=== PATIENT | male | born 1955 | race Caucasian/White ===

== ENCOUNTER 2016-06-11 07:00 | Inpatient (IN) | payer OTHER ==
[~2016-06-11] VITALS: Ht 180.3 cm; Wt 81.0 kg
[2016-06-11] MEDS ORDERED: ONDANSETRON (ODT) 4 MG TAB ODT STA (07:32)
--- NOTE | 2016-06-11 07:40 | ERD ---
ER Documentation Chief Complaint Date/Time DATE: 06/11/16 TIME: 07:37 Chief Complaint HEADACHE X 5 DAYS HPI This is a very pleasant 61-year-old male. 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 Patient has prior history of cardiac surgery. The patient describes a headache for approximately 2-3 days. He describes it as left-sided, occipital, located at the base of the neck at the insertion point of the strap muscles of the neck. The pain is worse with movement and worse to touch. He states that he took an unknown named pain medication without relief. He denies any vision changes. He has had 1-2 episodes of nonbloody nonbilious emesis but no vertigo. He denies any chest pain or back pain. No vision changes, no jaw claudication. ROS All systems reviewed and are negative except as per history of present illness. PMhx/Soc History of Surgery: Yes (heart surgery ) Anesthesia Reaction: No Hx Neurological Disorder: No Hx Respiratory Disorders: No Hx Cardiac Disorders: Yes (high cholesterol ) Hx Psychiatric Problems: No Hx Miscellaneous Medical Probl: No Hx Alcohol Use: No Hx Substance Use: No Hx Tobacco Use: No Smoking Status: Never smoker FmHx Family History: No diabetes Physical Exam Vitals Vital Signs Date Time Temp Pulse Resp B/P Pulse Ox O2 Delivery O2 Flow Rate FiO2 06/11/16 07:15 98.0 74 18 136/83 99 Physical Exam General: Well developed, well nourished, no acute distress Head: Normocephalic, atraumatic. Eyes: Pupils equally reactive, EOM intact ENT: Moist mucous membranes Neck: Supple, no lymphadenopathy, focal tenderness along the base of the calvarium at the insertion point of the strap muscles of the neck that is reproducible, however full active and passive range of motion of the neck Respiratory: Lungs clear bilaterally, no distress Cardiovascular: RRR, no murmurs, rubs, or gallops Abdominal: Soft, non-tender, non-distended, no peritoneal signs : Deferred MSK: No edema, no unilateral swelling, 5/5 strength Neurologic: Alert and oriented, moving all extremities, normal speech, no focal weakness, no cerebellar signs, no meningismus Skin: No rash Psych: Normal mood Results 24 hrs Current Medications Medications (Trade) Dose Ordered Sig/Brayan Route PRN Reason Start Time Stop Time Status Last Admin Dose Admin Acetaminophen/ Hydrocodone Bitart ([place] (10/325)) 1 tab ONCE ONCE PO 06/11/16 08:00 06/11/16 08:01 DC 06/11/16 07:38 Diazepam (Valium) 5 mg ONCE ONCE PO 06/11/16 08:00 06/11/16 08:01 DC 06/11/16 07:38 Ondansetron HCl 4 mg 4 mg ONCE STAT ODT 06/11/16 07:32 06/11/16 07:34 DC 06/11/16 07:38 Sodium Chloride (NS) 500 ml @ 500 mls/hr Q1H STAT IV 06/11/16 08:52 06/11/16 09:51 DC 06/11/16 09:36 Procedures/MDM EKG, MONITORS, & DIAGNOSTIC IMAGING: CT brain: IMPRESSION: Low attenuation focus involving the inferolateral aspect of the left cerebellar hemisphere measuring 2.3 x 3.7 x 2.9 cm has a nonspecific appearance and may represent subacute ischemic changes or vasogenic edema from underlying etiologies such as cerebritis or metastasis. MRI of the brain with and without contrast is recommended for further evaluation. Results were discussed with Dr. Carrion by telephone at 0849 hours on 06/11/[address] Karson Herrera RPTAT: AADD MRI w and wo: [] MEDICAL DECISION MAKING: The patient presents with occipital headache and neck pain. His presentation is very consistent with likely musculoskeletal etiology given focal tenderness, reproducible symptoms with movement. He has no midline tenderness of the cervical spine. The patient does not meet high-risk criteria and based on NEXUS cervical spine criteria there is no indication for cervical spine imaging at this time. The patient has no vertigo and no sudden onset of symptoms. The presentation is not consistent with acute dissection. Blood pressure is normal. The patient's headache seems to be related to this insertion point. I have a low clinical concern for acute intracranial process however given the patient's age CT imaging of the brain would be reasonable. Patient has no evidence of giant cell arteritis The patient's headache is unlikely related to serious etiology. The patient does not exhibit any clinical signs or symptoms, and has no risk factors to suggest headache etiology such as subarachnoid hemorrhage, acute vertebral or carotid dissection, intracranial mass, epidural, subdural hematoma, dural venous sinus thrombosis, giant cell arteritis, or pseudotumor cerebri. The patient will benefit from nonsteroidal anti-inflammatories after negative CT brain. Pain medication, muscle relaxant medication and outpatient primary care referral. ER COURSE: Patient was given [place] and Valium and Zofran. He tolerated medications well. His symptoms are improving. However, the patient's CT brain is abnormal. The patient has no symptoms of fever, no symptoms or prior history of stroke. Unclear etiology as to the patient's CT findings. MRI imaging would be appropriate. The patient will have basic blood work and MRI with and without contrast. The patient may not require inpatient hospitalization depending on MRI results therefore the patient will continue to be observed in the emergency room. His pain is improved. [] I kept the patient and/or family informed of laboratory and diagnostic imaging results throughout the emergency room course. DISPOSITION PLAN: We discussed follow up with the patient's primary care doctor within 24 to 48 hours as needed. We also discussed return to the emergency room for worsening symptoms or worsening condition. Outpatient referral: [None required] Discharge Medications: [place], Valium, Naprosyn, Zofran We discussed the use of narcotics including avoidance of operating heavy machinery and driving as well as its addictive properties. Departure Diagnosis: Primary Impression: Headache, occipital Additional Impression: Neck pain on left side Condition: Stable CAMILLE CARRION MD Jun 11, 2016 07:40
[2016-06-11] MEDS ORDERED: DIAZEPAM 5 MG TAB PO ONE (08:00)
[2016-06-11] MEDS ORDERED: HYDROCODONE/APAP (10/325) TAB PO ONE (08:00)
--- NOTE | 2016-06-11 08:51 | RADRPT ---
PROCEDURE: CT Brain without contrast. CLINICAL INDICATION: Pain, headache TECHNIQUE: Routine CT scan of the brain was performed on a high resolution multi detector scanner without intravenous contrast. One or more of the following dose reduction techniques were used: Auto mated exposure control; Adjustment of the mA and/or kV according to patient size; Use of iterative r econstruction technique. CTDI = 41 mGy. DLP = 630 mGy-cm. COMPARISON: No prior relevant examinations are available for comparison. FINDINGS: Hemorrhage: No evidence of intracranial hemorrhage. Acute ischemic changes: No evidence of definite acute ischemic changes. Mass effect/Midline shift: Low attenuation focus involving the inferolateral aspect of the left cere bellar hemisphere measuring 2.3 x 3.7 x 2.9 cm has a nonspecific appearance and may represent subacu te ischemic changes or vasogenic edema from underlying etiologies such as cerebritis or metastasis. This produces minimal local mass effect without significant mass effect on the fourth ventricle or t onsillar descent. Parenchymal volume: Within normal limits for age. Ventricular system: Concordant with parenchymal volume. Chronic changes: Mild chronic-appearing microvascular ischemic changes of the supratentorial white m atter. Atherosclerotic calcifications of the cavernous portions of both internal carotid arteries ar e present. Extracranial soft tissues: Unremarkable. Calvarium: No fractures. Paranasal sinuses: Visualized paranasal sinuses are clear. Mastoid air cells: Visualized mastoid air cells are clear. IMPRESSION: Low attenuation focus involving the inferolateral aspect of the left cerebellar hemisphere measuring 2.3 x 3.7 x 2.9 cm has a nonspecific appearance and may represent subacute ischemic changes or vaso genic edema from underlying etiologies such as cerebritis or metastasis. MRI of the brain with and w ithout contrast is recommended for further evaluation. Results were discussed with Dr. Carrion by telephone at 0849 hours on 06/11/[address] Karson valdes RPTAT: AADD .Karson Herrera MD, MD Date Time Electronically viewed and signed by .Karson Herrera MD, MD on 06/11/2016 08:51 .B/
[2016-06-11] MEDS ORDERED: SOD CHLORIDE 0.9% 500 ML IV STA (08:52)
[2016-06-11 10:31] LABS: ADD SCAN DIFF NO
[2016-06-11 10:40] LABS: BASOPHILS % 0.2 % (0.0-2.0); EOSINOPHILS % 0.2 % (0.0-7.0); HEMATOCRIT 47.1 % (42.0-52.0); HEMOGLOBIN 15.9 g/dl (14.0-18.0); LYMPHOCYTES # 1.1 10^3/ul (0.8-2.9); LYMPHOCYTES % 8.7 % (15.0-51.0); MEAN CORPUSCULAR HEMOGLOBIN 27.7 pg (29.0-33.0); MEAN CORPUSCULAR HGB CONC 33.8 g/dl (32.0-37.0); MEAN CORPUSCULAR VOLUME 82.2 fl (82.0-101.0); MEAN PLATELET VOLUME 10.7 fl (7.4-10.4); MONOCYTE # 0.4 10^3/ul (0.3-0.9); MONOCYTES % 3.5 % (0.0-11.0); NEUTROPHIL # 10.7 10^3/ul (1.6-7.5); NEUTROPHILS % 87.1 % (39.0-77.0); PLATELET COUNT 283 10^3/UL (140-415); RED BLOOD COUNT 5.73 10^6/ul (4.70-6.10); RED CELL DISTRIBUTION WIDTH 14.4 % (11.5-14.5); WHITE BLOOD COUNT 12.3 10^3/ul (4.8-10.8)
[2016-06-11 10:48] LABS: POTASSIUM 5.7 mmol/L (3.5-5.1)
[2016-06-11 10:51] LABS: CREATININE 1.03 mg/dl (0.61-1.24)
[2016-06-11 10:52] LABS: CALCIUM 9.2 mg/dl (8.4-10.2)
[2016-06-11 10:54] LABS: INR 1.95; PARTIAL THROMBOPLASTIN TIME 34.1 Sec (25.0-35.0); PROTIME 22.4 Sec (12.2-14.2); PT RATIO 1.8
[2016-06-11] MEDS ORDERED: ATOR40TA68 PO (11:35)
[2016-06-11] MEDS ORDERED: WARF10TA PO ×2 (11:39→11:54)
[2016-06-11] MEDS ORDERED: ONDA4TAB14 PO (13:39)
[2016-06-11] MEDS ORDERED: HYDR-902 PO (13:39)
[2016-06-11] MEDS ORDERED: DIAZ-90 PO (13:39)
[2016-06-11] MEDS ORDERED: NAPR-260 PO (13:39)
[2016-06-11] MEDS ORDERED: LORAZEPAM 2 MG INJ IV ONE (15:30)
[2016-06-11] MEDS ORDERED: ASPIRIN 325 MG TAB PO STA (16:10)
--- NOTE | 2016-06-11 16:12 | RADRPT ---
PROCEDURE: MR Brain with and without contrast. CLINICAL INDICATION: Left inferior cerebellar lesion. TECHNIQUE: Multiplanar multisequence MRI of the brain was performed before and after the administra tion of 10 ml of Magnevist. COMPARISON: Noncontrast CT of the head from the same day. FINDINGS: There are few bilateral subcortical T2 hyperintensities suggesting chronic microvascular ischemic c hanges. Hypoattenuation within the left inferior cerebellar hemisphere corresponds with a 3.7 cm area of res tricted diffusion compatible acute / recent infarction. There is associated edema without significan t effacement of the fourth ventricle or hydrocephalus. There is minimal associated enhancement in th e inferior medial aspect of the left cerebellar hemisphere related to infarction. Otherwise there i s no intracranial hemorrhage. Otherwise the ventricles and sulci are within normal limits. There is no intracranial hemorrhage or extra-axial fluid collection. There is no midline shift. The brainstem is within normal limits. The normal intracranial, intravascular flow voids are preserved. The visualized paranasal sinuses are well aerated. The orbits are grossly unremarkable. There is no destructive osseous lesion. IMPRESSION: 1. Acute / recent infarction within the left inferior cerebellar hemisphere within the left posteri or inferior cerebellar artery distribution corresponding with hypoattenuation on recent head CT. The re is no effacement fourth ventricle or hydrocephalus. Serial noncontrast CT of the head imaging ma y be performed if clinically considered for developing hydrocephalus. 2. Minimal chronic microvascular ischemic changes. 3. No intracranial hemorrhage. Further findings as detailed above. These findings were discussed with Dr. Pola Jimenez at 04:09 p.m. on June 11, 2016. RPTAT: PP .Conor Lawler MD, Date Time Electronically viewed and signed by .Conor Lawler MD, on 06/11/2016 16:12 .F/
[2016-06-11] MEDS ORDERED: ONDANSETRON 4 MG INJ IV PRN ×2 (16:30→18:00)
[2016-06-11] MEDS ORDERED: ACETAMINOPHEN 325 MG TAB PO PRN ×2 (16:30→18:00)
[2016-06-11] MEDS ORDERED: BISACODYL 10 MG SUPP PR PRN (18:00)
[2016-06-11] MEDS ORDERED: morphine 2 MG INJ IV PRN (18:00)
[2016-06-11] MEDS ORDERED: NACL 0.9% 3 ML SYG IV SCH (18:00)
[2016-06-11] MEDS ORDERED: HYDROCODONE/APAP (5/325) TAB PO PRN (18:00)
[2016-06-11] MEDS ORDERED: WARFARIN 10 MG TAB PO SCH (18:30)
[2016-06-11] MEDS ORDERED: DIAZEPAM 5 MG TAB PO PRN (18:30)
[2016-06-11] MEDS: ENOXAPARIN 80 MG/0.8 ML SYG SC SCH (18:39)
[2016-06-11] MEDS ORDERED: IOHEXOL 350MG/ML 50 ML BTL ONE (19:58)
[2016-06-11] MEDS ORDERED: SOD CHLORIDE 0.9% 100 ML ONE (19:58)
[2016-06-11] MEDS ORDERED: IOHEXOL 100 ML ONE (19:58)
[2016-06-11] MEDS ORDERED: HYDROmorphONE 1 MG/ML SYG IV STA (20:50)
[2016-06-11] MEDS: ATORVASTATIN 40 MG TAB PO SCH (21:00)
[2016-06-11] MEDS: FAMOTIDINE 20 MG TAB PO SCH (21:00)
--- NOTE | 2016-06-11 21:37 | RADRPT ---
PROCEDURE: CT Angiogram Head and Neck with IV Contrast CLINICAL INDICATION: Left cerebellar stroke.. TECHNIQUE: Serial axial computed tomographic images of the head and neck were obtained at the [facility] nistration of 100 cc Omnipaque 350 IV contrast material. 3D, sagittal and coronal reconstruction im ages were created. 3D/MIP post-processing angiographic reconstruction images were also produced. Ex am CTDlvol = 36 mGy and DLP = 739 mGy-cm. One of the following 3 dose reduction techniques were use d: Automated exposure control; adjustment of the mA and/or kV according to patient size; or use of i terative reconstruction technique. COMPARISON: CT and MRI brain 06/11/2016 FINDINGS: CT Angio Neck: There are mild atherosclerotic calcifications of the aortic arch. The aortic arch is unremarkable. The common carotid arteries are normal in appearance. There is minimal noncalcified plaque the left carotid bulb without hemodynamically significant stenosis. Right carotid bifurcatio n is normal in appearance.. There is no evidence for carotid dissection. The vertebral arteries ar e pain bilaterally. There is a dominant right vertebral artery. There are no atherosclerotic calci fications or stenosis. There is no evidence for vertebral dissection.. Regional bones unremarkable . CT Angio Head: All major intracranial arteries are identified. The anterior circulation including the intracranial internal carotid arteries, middle and anterior cerebral arteries are normal in appe arance. The bilateral distal vertebral arteries, basilar artery and posterior cerebral arteries are normal in appearance. No occlusion or stenosis is identified. No filling defect is identified. No aneurysm or vascular malformation is identified. No abnormal brain parenchymal enhancement is i dentified. IMPRESSION: 1. Minimal noncalcified plaque at the left carotid bulb without hemodynamically significant stenosi s. 2. Minimal atherosclerotic calcifications of the aortic arch. No other atherosclerotic disease robert ntified. 3. Dominant right vertebral artery. Pain left vertebral artery without stenosis or evidence for di ssection. 4. Otherwise negative examination. NASCET CAROTID STENOSIS CRITERIA (distal normal appearing ICA as denominator for measurement): 0%-no ne, 1-49%-mild, 50-70%-moderate, 70-89%-severe, 90-99%-critical. RPTAT: HMVK .Freddy Espinoza MD, MD Date Time Electronically viewed and signed by .Freddy Espinoza MD, on 06/11/2016 21:36 .K/
[2016-06-12] VITALS (11 sets, daily range): BP systolic 73–130; BP diastolic 25–88; PULSE 59–76; RESP 15–20; TEMP 98.3
[2016-06-12] MEDS: HYDROmorphONE 1 MG/ML SYG IV PRN ×2 (04:37→10:31)
[2016-06-12 05:47] LABS: ALBUMIN 3.9 g/dl (3.3-4.9)
[2016-06-12 05:48] LABS: POTASSIUM 4.4 mmol/L (3.5-5.1)
[2016-06-12 05:50] LABS: ALBUMIN/GLOBULIN RATIO 1.08; BILIRUBIN,INDIRECT 0.8 mg/dl (0-1.1); BILIRUBIN,TOTAL 0.8 mg/dl (0.2-1.3); CREATININE 0.99 mg/dl (0.61-1.24); TOTAL PROTEIN 7.5 g/dl (6.1-8.1)
[2016-06-12 05:51] LABS: CALCIUM 8.9 mg/dl (8.4-10.2); CHOL/HDL RATIO 2.8 RATIO
[2016-06-12 05:54] LABS: INR 2.29; PROTIME 25.5 Sec (12.2-14.2)
[2016-06-12 05:55] LABS: PARTIAL THROMBOPLASTIN TIME 44.6 Sec (25.0-35.0)
--- NOTE | 2016-06-12 06:16 | HP ---
DATE OF ADMISSION: 06/11/2016 ADMITTING PHYSICIAN: ELI MCGRATH MD CONSULTING PHYSICIAN: PHILIP TOLENTINO MD, Neurology CHIEF COMPLAINT ON ADMISSION: Posterior headache. HISTORY OF PRESENTING ILLNESS: This is a 61-year-old male status post mechanical valve a year and a half ago, hyperlipidemia, very active in his usual state of health until approximately 2 to 3 days ago when he started complaining of a posterior headache. According to the patient, it kept worsenin g up to a 10 out of 10 by this morning. According to the family, the patient was noted to have abno rmal gait and unsteadiness. The patient himself does report nausea and episodes of vomiting. He re ports also dizziness. All the symptoms were worse this morning. Therefore, he came to the emergenc y department. He was treated symptomatically and did feel a little better. He had a CAT scan of th e brain which came back abnormal with possible acute infarct in the PICA territory. Patient had his labs drawn. He is found to have INR of 1.9. His goal INR should be 2.5 to 3.5. He had a subsequen t MRI with and without contrast which did confirm an acute or recent acute infarction in the PICA te rritory. Because this is a posterior infarction, there is high risk for worsening vasogenic edema a nd brain herniation. Therefore the patient is being admitted to the intensive care unit on q.1 hour neuro checks and he needs serial CAT scan to evaluate for possible worsening edema or developing hyd rocephalus. Given his history of mechanical valve, the patient has been on Coumadin as an outpatien t and the family did confirm that his goal INR should be 2.5 to 3.5. However, he has not had his IN R checked over the past 3 months and today it is 1.9. There is a high suspicion for this acute cere brovascular accident being on embolic CVA at this time; therefore, he was given a dose of Lovenox in the emergency department already, 1 mg/kg. He is being admitted to the intensive care unit. CT an giogram of the head and neck are pending. The patient currently is complaining of headache, but no nausea. His vision seems to be stable. ALLERGIES: NO KNOWN ALLERGIES. PAST MEDICAL HISTORY: Hyperlipidemia. PAST SURGICAL HISTORY: Status post mechanical valve placement. SOCIAL HISTORY: The patient lives with family. He denies any alcohol use. He quit smoking a long time ago. He only smoked occasionally for 1 year and his also quit smoking. REVIEW OF SYSTEMS: As per HPI. OUTPATIENT MEDICATIONS: 1. Coumadin 10 mg p.o. every Tuesday, Tuesday, 2. Coumadin 5 mg p.o. every Tuesday, Tuesday and Tuesday. 3. Atorvastatin 40 mg p.o. at bedtime. 4. Valium 5 mg p.o. q. 8 hours p.r.n. muscle spasms. 5. [place] 10/325 one tab p.o. q.6h. p.r.n. pain. 6. Naprosyn 500 mg p.o. b.i.d. 7. Zofran ODT 4 mg p.o. at bedtime p.r.n. nausea, vomiting. PHYSICAL EXAMINATION: VITAL SIGNS: Temperature is 98.3, heart rate of 76, sinus rhythm, respiratory rate 20, blood pressu re 118/86. The patient is satting 98% on room air. GENERAL: He is alert and oriented x4. He is in no acute distress currently. His pain is around 5 to 8/10, but he is very comfortable after he was given Ativan for his MRI. HEENT: Pupils are equally round and reactive to light. Extraocular muscles are intact. Anicteric sclerae. NECK: No JVD, no thyromegaly. Cranial nerves II through XII are intact. The rest of his exam is fa irly limited. LUNGS: Clear to auscultation bilaterally. ABDOMEN: Soft, nontender, nondistended. Bowel sounds are present. HEART: Regular rate and rhythm. There is a mechanical valve click that can be heard during exam. EXTREMITIES: No edema, clubbing or cyanosis. NEUROLOGIC: The motor strength is 5/5 throughout all 4 extremities. Gait is not tested at this poi nt. Vision seems to be fairly clear except the patient complains of seeing flutters on peripheral vi ester exam. LABORATORY DATA: White blood cell count 12.3, hemoglobin 15.9, hematocrit 47.1, platelet count of 2 83. Chemistry with a sodium of 138, potassium 5.7, chloride 102, bicarbonate 27, BUN 17, creatinine 1.03, glucose of 118, calcium of 9.2. INR 1.95, PT 34.1, PTT 22.4. RADIOLOGICAL DATA: CAT scan of the brain early this morning showed low attenuation focus involving the inferolateral aspect of the left cerebellar hemisphere measuring 2.3 x 3.7 x 2.9 cm. It has a n onspecific appearance and may represent subacute ischemic changes of vasogenic edema from underlying etiology such as cerebritis or metastasis. MRI of the brain with and without contrast is recommend ed for further evaluation. MRI of the brain with and without contrast did show acute/recent infarction within the left inferior cerebellar hemisphere within the left posterior inferior cerebellar artery distribution correspondi ng with hypoattenuation on recent head CT. There is no assessment of the fourth ventricle or hydroc ephalus. Serial noncontrast CT of the head imaging may be performed if clinically consider for deve loping hydrocephalus. Minimal chronic microvascular ischemic changes. ASSESSMENT AND PLAN: This is a 61-year-old male with: 1. 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 I have discussed the res ults of the MRI with radiology because of the location of infarct, and the fact that it is most like ly embolic. There is concern for possible worsening vasogenic edema and ____herniation, therefore, the patient is admitted to the intensive care unit currently and he is going to have a q.1h. neuro check, repeat CAT scan in the morning, CT angiogram of the head and neck that are pending. A 2D ec hocardiogram is ordered as again this is likely an embolic process as the patient has subtherapeutic INR with mechanical valve in place. His Coumadin is resumed. INR will be rechecked in the morning. For now, we will cover him with Lovenox 1 mg/kg. Pending the results of the CT in the morning, we will continue anticoagulation. Blood pressure is stable. The patient is currently comfortable. S ymptomatic management of the headache with pain medications. 2. Hyperlipidemia. Check fasting lipid panel in a.m. but also hemoglobin A1c. Continue atorvastat in for now. 3. Prophylaxis. The patient already on Lovenox treatment. 4. Status post mechanical valve. I will obtain more information from the family as to which positio n this valve is. This is likely a mitral mechanical valve. I will get more information from famil y regarding this mechanical valve. They do have a card that can give more information. For now, I h ave confirmed that the goal INR should be 2.5 to 3.5. Therefore, Coumadin is restarted at 10 mg p.o . daily with daily INR to be checked and bridged with Lovenox in the meantime. 5. Prophylaxis. The patient is already on full anticoagulation and he is to receive Pepcid for GI prophylaxis. 6. Disposition. The patient is being admitted to the intensive care unit primarily for q.1h. neur o checks; therefore, hopefully, if he remains stable and repeat CAT scan is stable, he may be able t o be transferred to the floor. Neurology has been consulted. CT angiogram of the head and neck are pending. Dictated By: ELI COLON/DONALDO Conf#: [id number] DID#: [id number]
--- NOTE | 2016-06-12 06:18 | SP ---
DATE OF PROCEDURE: REFERRING PHYSICIAN: Dr. Griffiths Thank you for asking me to see the patient with you. HISTORY OF PRESENT ILLNESS: The patient is a 61-year-old male with a past medical history of dyslip idemia. The patient is on anticoagulation with his primary doctor, Coumadin, in which the patient was drowsy in the last 3 days, with lack of balance himself. 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 He does not want to go to the hospital. He came by his family. Today we got a call about him for more evaluation and treatment. CURRENT MEDICATIONS: Include: 1. Lipitor 20 mg once a day. 2. 20 mg once a day. 3. Lovenox 30 mg q.12h. subcutaneous. 4. Valium 5 mg every 8 hours as needed. 5. Coumadin 10 mg once a day. 6. Zofran 4 mg once a day. 7. Atenolol 650 mg once a day. 8. Colace 100 mg twice a day as needed. 9. Milk of Magnesia as needed. 10. Bisacodyl as needed. SOCIAL HISTORY: The patient does not smoke, does not drink, does not take any street drugs. 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 PHYSICAL EXAMINATION: GENERAL: On exam today, the patient is alert, awake, oriented to time, place, and person. Normal sp eech and normal language. CRANIAL NERVES: Cranial nerve II: Pupils are equal on both sides, reactive to light. Cranial nerv es III, IV, and : Extraocular muscles intact, . Cranial nerve V: Decreased sensation to the left side of his face, with numbness. Cranial nerve VII: Symmetrical face. Cranial nerve VIII: D ecreased hearing bilaterally. Cranial nerves IX and X: Elevates palate. Cranial nerve XI: Elevat es shoulders. 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 Sensation decreased on the right side of the body for light touch and temperature. COORDINATION: [id number] test intact. HEART: Regular rate and rhythm. LUNGS: Equal breath sounds. ABDOMEN: Soft, relaxed, nondistended. No tenderness. ASSESSMENT AND PLAN 1. The patient is a 61-year-old male with gross hemisensory deficits, with the possibility of under lying acute stroke. The patient is already on Coumadin. Will follow up the patient with an INR and keep the INR between the level of 2 to 3. Continue the patient on Lovenox subcutaneous from now un til we get a subtherapeutic level of the Coumadin. 2. Will follow up the patient with [facility] for more evaluation and treatment, with the possibility of u nderlying left PICA, posterior and inferior cerebellar artery stroke. 3. Keep the patient under aspiration precautions for now, follow up the patient with speech therapy for swallowing and keep the patient n.p.o. until we get the study done. 4. Gross hemianesthesia. I am going to ask for the patient Neurontin 300 mg 3 times a day. 5. Will follow up the patient with physical therapy and occupational therapy. 6. Keep the patient under deep venous thrombosis prophylaxis, as well as decubitus ulcer prophylaxi s. Again, thank you, Dr. Abraham, for asking me to see the patient with you. Dictated By: PHILIP GARCÍA/DONALDO Conf#: [id number] DID#: [id number]
--- NOTE | 2016-06-12 07:21 | PN ---
Date/Time of Note Date/Time of Note DATE: 06/12/16 TIME: 07:07 Assessment/Plan VTE Prophylaxis VTE Prophylaxis Intervention: LMWH, other (Coumadin) Assessment/Plan Assessment/Plan [facility] 1. 61-year-old man with a history of a mechanical valve 18 months ago and hyperlipidemia who developed occipital headache 3 days ago. Abnormal gait according to his family. Nausea and emesis now resolved. No dizziness. Bedside swallowing evaluation normal. MRI with and without contrast confirmed an acute or recent acute infarction in the PICA territory. * Discussed with Dr. Abraham this morning. Transfer to telemetry. * Neuro checks every 2 hours * INR this morning is 2.19. Target is 2.5, on Coumadin 10mg tonight and Lovenox * Pain control with Dilaudid 1mg q2h for now 2. Hyperlipidemia. * Lipid panel pending 3. Status post mechanical valve placement. * Family seeking additional information 4. Elevated potassium (5.7), now resolved on AM labs today. 5. CKD3 6. Famotidine for GI prophylaxis, Lovenox and Coumadin for DVT and new stroke prophylaxis 7. Disposition: Following with Dr. Griffiths, supportive family at home. Maxime Tolentino MD PhD [phone] Subjective 24 Hr Interval Summary Free Text/Dictation Complaining of mild occipital headache, 30 minutes after his last dose of Dilaudid (started by me at 4:15am). No nausea or dizziness now. Mildly hungry and thirsty. Exam/Review of Systems Vital Signs Vitals Vital Signs Date Time Temp Pulse Resp B/P Pulse Ox O2 Delivery O2 Flow Rate FiO2 06/12/16 06:43 57 18 130/79 100 Room Air 06/12/16 04:00 98.3 Exam GENERAL: No acute distress, breathing comfortably on room air. HEENT: Pupils are equally round and reactive to light. Extraocular muscles are intact. Anicteric sclerae. Upper plate in place. NECK: No JVD, no thyromegaly. The rest of his exam is fairly limited. LUNGS: Clear to auscultation bilaterally. ABDOMEN: Soft, nontender, non-distended. Bowel sounds are present. HEART: Regular rhythm, normal rate. There is a mechanical valve click that can be heard during exam. EXTREMITIES: No edema, clubbing or cyanosis. No arthritis. NEUROLOGIC: Intact mental status. Cranial nerves II through XII are intact. The motor exam is 5/5 bilaterally in all four extremities. Toes downgoing. Results Result Diagram: 06/11/16 1025 06/12/16 0515 Results 24 hrs Laboratory Tests Test 06/11/16 10:25 06/12/16 05:15 White Blood Count 12.3 H Red Blood Count 5.73 Hemoglobin 15.9 Hematocrit 47.1 Mean Corpuscular Volume 82.2 Mean Corpuscular Hemoglobin 27.7 L Mean Corpuscular Hemoglobin Concent 33.8 Red Cell Distribution Width 14.4 Platelet Count 283 Mean Platelet Volume 10.7 H Neutrophils % 87.1 H Lymphocytes % 8.7 L Monocytes % 3.5 Eosinophils % 0.2 Basophils % 0.2 Nucleated Red Blood Cells % 0.0 Neutrophils # 10.7 H Lymphocytes # 1.1 Monocytes # 0.4 Eosinophils # 0.0 Basophils # 0.0 Nucleated Red Blood Cells # 0.0 Prothrombin Time 22.4 H 25.5 H Prothrombin Time Ratio 1.8 2.0 INR International Normalized Ratio 1.95 2.29 Activated Partial Thromboplast Time 34.1 44.6 H Sodium Level 138 137 Potassium Level 5.7 H 4.4 Chloride Level 102 103 Carbon Dioxide Level 27 24 Anion Gap 15 14 Blood Urea Nitrogen 17 13 Creatinine 1.03 0.99 Glucose Level 118 112 Calcium Level 9.2 8.9 Hemoglobin A1c 5.7 Magnesium Level 2.0 Total Bilirubin 0.8 Direct Bilirubin 0.00 Indirect Bilirubin 0.8 Aspartate Amino Transf (AST/SGOT) 38 Alanine Aminotransferase (ALT/SGPT) 46 Alkaline Phosphatase 115 Total Protein 7.5 Albumin 3.9 Globulin 3.60 H Albumin/Globulin Ratio 1.08 Triglycerides Level 109 Cholesterol Level 110 LDL Cholesterol, Calculated 49 HDL Cholesterol 39 Cholesterol/HDL Ratio 2.8 Medications Medications Current Medications Ondansetron HCl (Zofran Inj) 4 mg Q6H PRN IV NAUSEA AND/OR VOMITING; Start at 18:00 Acetaminophen (Tylenol Tab) 650 mg Q6H PRN PO PAIN LEVEL 1-3 OR FEVER; Start at 18:00 Acetaminophen/ Hydrocodone Bitart ([place] (5/325)) 1 tab Q6H PRN PO PAIN LEVEL 4 -6; Start 06/11/16 at 18:00 Acetaminophen/ Hydrocodone Bitart ([place] (5/325)) 2 tab Q6H PRN PO PAIN LEVEL 7 -10; Start 06/11/16 at 18:00 Morphine Sulfate (morphine) 2 mg Q4H PRN IV PAIN LEVEL 7-10; Start 06/11/16 at 18:00 Docusate Sodium (Colace) 100 mg Q12H PRN PO CONSTIPATION; Start 06/11/16 at 18: 00 Magnesium Hydroxide (Milk Of Mag) 30 ml DAILY PRN PO CONSTIPATION; Start at 18:00 Bisacodyl (Dulcolax Supp) 10 mg DAILY PRN [place] CONSTIPATION; Start 06/11/16 at 18 :00 Famotidine (Pepcid) 20 mg Q12 PO Last administered on 06/11/16 21:00; Admin Dose 20 MG; Start 06/11/16 at 21:00 Enoxaparin Sodium (Lovenox) 80 mg ONCE SC Last administered on 06/11/16 18:39 ; Admin Dose 80 MG; Start 06/11/16 at 18:30 Atorvastatin Calcium (Lipitor) 40 mg QHS PO Last administered on 06/11/16 21: 00; Admin Dose 40 MG; Start 06/11/16 at 21:00 Diazepam (Valium) 5 mg Q8H PRN PO MUSCLE SPASMS; Start 06/11/16 at 18:30 Warfarin Sodium (Coumadin) 10 mg DAILY PO Last administered on 06/11/16 19:16 ; Admin Dose 10 MG; Start 06/11/16 at 18:30 Enoxaparin Sodium (Lovenox) 80 mg Q12 SC ; Start 06/12/16 at 09:00 Hydromorphone HCl (Dilaudid) 1 mg Q3H PRN IV PAIN LEVEL 7-10 Last administered on 06/12/16 04:37; Admin Dose 1 MG; Start 06/12/16 at 04:30 ИРИНА TOLENTINO M.D. Jun 12, 2016 07:19
[2016-06-12] MEDS ORDERED: ASPIRIN 81 MG TAB PO SCH (09:00)
[2016-06-12] MEDS: FAMOTIDINE 20 MG TAB PO SCH ×2 (09:58→20:26)
[2016-06-12] MEDS: ENOXAPARIN 100 MG/ML SYG SC SCH ×2 (09:58→20:29)
--- NOTE | 2016-06-12 13:01 | RADRPT ---
Echocardiogram Report ADDENDUM Patient Name: JOSE LEY Gender: Male Date: 1955 Study Date: 12-Jun-2016 Band Sewer: [facility] Location: [facility] Ref. Physician: MORA MCGRATH Quality: Adequate Procedures: Transthoracic echocardiogram with complete 2D, M-Mode, and doppler examination. Indications: Chest Pain. 2D/M Mode Doppler Measurement Value Normal Ranges Measurement Value Normal Ranges LVIDd 2D 3.8 3.5 - 5.6 cm LETY Vmax 2.0 cm2 LVIDs 2D 2.6 2.1 - 4.1 cm LETY VTI 2.0 cm2 LVPWd 2D 1.3 0.6 - 1.1 cm AV Mean Sandeep 1.5 m/sec IVSd 2D 1.5 0.6 - 1.1 cm AV Mean PG 10.0 mmHg AoR Diam 2D 2.0 2.0 - 3.7 cm AV Peak Sandeep 2.1 m/sec EDV 2D 62.1 cm3 AV Peak PG 17.5 mmHg ESV 2D 17.1 cm3 AV VTI 45.4 cm LVOT Diam 1.9 cm LVOT Mean Sandeep 0.9 m/sec LVOT Mean PG 3.7 mmHg LVOT Peak Sandeep 1.5 m/sec LVOT Peak PG 8.9 mmHg LVOT VTI 31.5 cm MV E Peak Sandeep 0.7 m/sec MV A Peak Sandeep 1.0 m/sec MV E/A 0.8 MV Decel Time 343 msec MV Decel Armstrong 2 MV E/A 0.8 TR Peak Sandeep 2.2 m/sec TR Peak PG 20.0 mmHg Findings Left Ventricle: Normal left ventricular systolic function. Normal left ventricular cavity size. Mild hypertrophy of the basal septum. Ejection fraction is visually estimated at 65 %. Tissue Doppler/Mitral Doppler indices are consistent with impaired relaxation (Stage I diastolic dysfunction). Resting left ventricular outflow tract velocity 1.49 m/sec. Resting left ventricular outflow tract gradient 8.9 mmHg. Right Ventricle: Normal right ventricular size. Normal right ventricular systolic function. Left Atrium: The left atrium is normal in size. Right Atrium: The right atrium is normal in size. Mitral Valve: Mild mitral leaflet calcification. Mild mitral annular calcification. Trace mitral regurgitation. Mild mitral stenosis. Mitral valve Max Velocity 1.19 m/sec. MaxPG 5.60 mmHg. MeanPG 1.70 mmHg. Mitral Valve Area by PHT2.50 cm2. Mitral Valve Area by Continuity2.50 cm2. Aortic Valve: Aortic Valve Mechanical Prosthesis. Aortic valve Max velocity 2.09 m/sec. Max PG 17.50 mmHg. Mean PG 10.00 mmHg. Aortic valve area 2.00 cm2. Tricuspid Valve: Estimated peak PA systolic pressure 23 mmHg. There is mild tricuspid regurgitation. Pulmonic Valve: There is trace pulmonic regurgitation. Pericardium: Normal pericardium with no significant pericardial effusion. Aorta: Normal aortic root. IVC: Normal size and normal respiratory collapse consistent with normal right atrial pressure. Conclusions 1.Normal left ventricular systolic function. Normal left ventricular cavity size. Mild hypertrophy of the basal septum. Ejection fraction is visually estimated at 65 %. Tissue Doppler/Mitral Doppler indices are consistent with impaired relaxation (Stage I diastolic dysfunction). Resting left ventricular outflow tract velocity 1.49 m/sec. Resting left ventricular outflow tract gradient 8.9 mmHg. 2.Mild mitral leaflet calcification. Mild mitral annular calcification. Trace mitral regurgitation. Mild mitral stenosis. Mitral valve Max Velocity 1.19 m/sec. MaxPG 5.60 mmHg. MeanPG 1.70 mmHg. Mitral Valve Area by PHT2.50 cm2. Mitral Valve Area by Continuity2.50 cm2. 3.Aortic Valve Mechanical Prosthesis. Aortic valve Max velocity 2.09 m/sec. Max PG 17.50 mmHg. Mean PG 10.00 mmHg. Aortic valve area 2.00 cm2. 4.Estimated peak PA systolic pressure 23 mmHg. There is mild tricuspid regurgitation. Electronically Signed By: Darrion Martinez 13-Jun-2016 08:29:52 -0700 [ADDENDUM] Patient Name: JOSE LEY Study Date: 12-Jun-2016 [id number]
--- NOTE | 2016-06-12 15:16 | CONS ---
DATE OF ADMISSION: 06/12/2016 DATE OF CONSULTATION: 06/12/2016 REFERRING PHYSICIAN: Jennifer Abraham MD Thank you for asking me to see the patient with you. HISTORY OF PRESENT FOLLOWUP: The patient is a 61-year-old male with a past medical history of hyper lipidemia. The patient was on anticoagulation in the form of Coumadin, in which the patient was adm itted with decreased balance, lack of walking, dizzy spell and was admitted to [facility] for more evaluation and treatment. CURRENT MEDICATIONS: Include: 1. Coumadin 10 mg once a day as needed. 2. Lovenox 80 mg every 12 hours subcutaneous. 3. Zofran 4 mg once a day. 4. Atenolol mg once a day. 5. Colace 100 mg once a day. 6. Milk of magnesia as needed. 7. Bisacodyl as needed. PHYSICAL EXAMINATION: GENERAL: On exam today, the patient is alert, awake, oriented to time, place, and person. Normal sp eech and normal language. CRANIAL NERVES: Cranial nerve II: Pupils equal on both sides, reactive to light. Cranial nerves I II, IV, and : Extraocular muscles intact. No nystagmus. Cranial nerve V: Decreased sensation o n the left side. Cranial nerve VII: Symmetrical face. Cranial nerve VIII: Decreased hearing bila terally. Cranial nerve X: Elevates palate. Cranial nerve XI: Elevates shoulder 5/5. Cranial ner ve XII: With straight tongue. MOTOR: Equal on both sides. 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 SENSORY: Sensation decreased in glove and sock area for light touch and temperature. COORDINATION: [id number] test intact. HEART: Regular rate and rhythm. LUNGS: Equal breath sounds. ABDOMEN: Soft, relaxed, nondistended. No tenderness. ASSESSMENT AND PLAN: 1. The patient is a 61-year-old male with underlying acute stroke in which the patient is on Coumad in and followup the patient to keep his INR between 2 and 3. Continue the patient on Lovenox until the Coumadin is at a therapeutic level. 2. Underlying left posterior inferior cerebellar artery stroke in which the patient had CTA, which does not show dissection. 3. We will keep the patient under aspiration precautions, especially as the patient might have dysp hagia secondary to stroke and follow up the patient with speech therapist. 4. We will follow up the patient with physical therapy and occupational therapy and possibility for acute rehab evaluation. 5. Keep the patient under fall precautions from now until seen by physical therapist. Again, thank you for asking me to see the patient with you. Dictated By: PHILIP GARCÍA/DONALDO Conf#: [id number] DID#: [id number]
[2016-06-12] MEDS ORDERED: WARFARIN 10 MG TAB PO SCH (17:00)
[2016-06-12] MEDS: ENOXAPARIN 80 MG/0.8 ML SYG SC SCH (18:08)
[2016-06-12] MEDS: ATORVASTATIN 40 MG TAB PO SCH (20:26)
[2016-06-13] VITALS (14 sets, daily range): BP systolic 100–132; BP diastolic 59–83; PULSE 53–79; RESP 18–20
[2016-06-13] MEDS: FAMOTIDINE 20 MG TAB PO SCH ×2 (08:30→20:08)
[2016-06-13] MEDS: ENOXAPARIN 100 MG/ML SYG SC SCH (08:32)
[2016-06-13] MEDS: HYDROCODONE/APAP (5/325) TAB PO PRN (11:41)
[2016-06-13] MEDS: MAGNESIUM HYDROXIDE 30ML CUP PO PRN (12:11)
--- NOTE | 2016-06-13 16:59 | PN ---
Date/Time of Note Date/Time of Note DATE: 06/13/16 TIME: 16:51 Assessment/Plan VTE Prophylaxis VTE Prophylaxis Intervention: LMWH, other (coumadin) Lines/Catheters IV Catheter Type [facility] Urinary Cath still in place: No Assessment/Plan Assessment/Plan [facility] 1. 61-year-old man with a history of a mechanical valve 18 months ago and hyperlipidemia who developed occipital headache 3 days prior to admission. He had an abnormal gait according to his family. Nausea and emesis now resolved, but he has persistent occipital headache. Bedside swallowing evaluation was normal. MRI with and without contrast confirmed an acute or recent acute infarction in the PICA territory. * On telemetry. * Neuro checks every shift * INR pending. Target is 2.5, on Coumadin 5 mg tonight * Lovenox discontinued, since he is in the therapeutic range * Switch pain control to Dilaudid 1mg q2h PO 2. Hyperlipidemia history, but Lipid panel showed triglycerides 110 and total cholesterol of 109. * Continue Statin 3. Status post mechanical valve placement. * Family seeking additional information 4. CKD3 5. Famotidine for GI prophylaxis, Lovenox and Coumadin for DVT and new stroke prophylaxis 6. Disposition: Following with Dr. Griffiths, supportive family at home. Maxime Tolentino MD PhD [phone] Subjective 24 Hr Interval Summary Free Text/Dictation Still complaining of headache, with Tylenol bringing no benefit. Mildly diaphoretic but not febrile. PT as not seen yet, so the patient has not been out of bed. His cousin was in attendance in his room. Exam/Review of Systems Vital Signs Vitals Vital Signs Date Time Temp Pulse Resp B/P Pulse Ox O2 Delivery O2 Flow Rate FiO2 06/13/16 16:38 98.3 56 20 110/70 97 06/12/16 10:42 Room Air Intake and Output 06/12/16 06/12/16 06/13/16 15:00 23:00 07:00 Intake Total 750 ml 500 ml Output Total 800 ml Balance -50 ml 500 ml Exam GENERAL: No acute distress, breathing comfortably on room air. HEENT: Pupils are equally round and reactive to light. Extraocular muscles are intact. Anicteric sclerae. Upper plate in place. NECK: No JVD, no thyromegaly, preserved movement. LUNGS: Clear to auscultation bilaterally. ABDOMEN: Soft, nontender, non-distended. Bowel sounds are present. HEART: Regular rhythm, normal rate. There is a mechanical valve click that can be heard during exam. EXTREMITIES: No edema, clubbing or cyanosis. No arthritis. NEUROLOGIC: Intact mental status. Cranial nerves II through XII are intact. The motor exam is 5/5 bilaterally in all four extremities. Toes downgoing. Careful sensory exam did not demonstrate any deficits for me today. Results Result Diagram: 06/11/16 1025 06/12/16 0515 Medications Medications Current Medications Ondansetron HCl (Zofran Inj) 4 mg Q6H PRN IV NAUSEA AND/OR VOMITING; Start at 18:00 Acetaminophen (Tylenol Tab) 650 mg Q6H PRN PO PAIN LEVEL 1-3 OR FEVER Last administered on 06/13/16 08:38; Admin Dose 650 MG; Start 06/11/16 at 18:00 Acetaminophen/ Hydrocodone Bitart ([place] (5/325)) 1 tab Q6H PRN PO PAIN LEVEL 4 -6 Last administered on 06/13/16 11:41; Admin Dose 1 TAB; Start 06/11/16 at 18: 00 Acetaminophen/ Hydrocodone Bitart ([place] (5/325)) 2 tab Q6H PRN PO PAIN LEVEL 7 -10; Start 06/11/16 at 18:00 Morphine Sulfate (morphine) 2 mg Q4H PRN IV PAIN LEVEL 7-10 Last administered on 06/13/16 16:43; Admin Dose 2 MG; Start 06/11/16 at 18:00 Docusate Sodium (Colace) 100 mg Q12H PRN PO CONSTIPATION; Start 06/11/16 at 18: 00 Magnesium Hydroxide (Milk Of Mag) 30 ml DAILY PRN PO CONSTIPATION Last administered on 06/13/16 12:11; Admin Dose 30 ML; Start 06/11/16 at 18:00 Bisacodyl (Dulcolax Supp) 10 mg DAILY PRN [place] CONSTIPATION; Start 06/11/16 at 18 :00 Famotidine (Pepcid) 20 mg Q12 PO Last administered on 06/13/16 08:30; Admin Dose 20 MG; Start 06/11/16 at 21:00 Atorvastatin Calcium (Lipitor) 40 mg QHS PO Last administered on 06/12/16 20: 26; Admin Dose 40 MG; Start 06/11/16 at 21:00 Diazepam (Valium) 5 mg Q8H PRN PO MUSCLE SPASMS; Start 06/11/16 at 18:30 Hydromorphone HCl (Dilaudid) 1 mg Q3H PRN IV PAIN LEVEL 7-10 Last administered on 06/12/16 10:31; Admin Dose 1 MG; Start 06/12/16 at 04:30 Warfarin Sodium (Coumadin) 5 mg DAILY@17 PO Last administered on 06/13/16 16: 42; Admin Dose 5 MG; Start 06/13/16 at 17:00 ИРИНА TOLENTINO M.D. Jun 13, 2016 16:59
[2016-06-13] MEDS ORDERED: WARFARIN 5 MG TAB PO SCH (17:00)
[2016-06-13 17:22] LABS: ADD SCAN DIFF NO; BASOPHIL # 0.1 10^3/ul (0.0-0.1); EOSINOPHILS # 0.3 10^3/ul (0.0-0.5); EOSINOPHILS % 3.8 % (0.0-7.0); HEMATOCRIT 45.9 % (42.0-52.0); HEMOGLOBIN 15.6 g/dl (14.0-18.0); LYMPHOCYTES # 2.4 10^3/ul (0.8-2.9); LYMPHOCYTES % 34.3 % (15.0-51.0); MEAN CORPUSCULAR HEMOGLOBIN 27.3 pg (29.0-33.0); MEAN CORPUSCULAR VOLUME 80.4 fl (82.0-101.0); MEAN PLATELET VOLUME 10.2 fl (7.4-10.4); MONOCYTE # 0.9 10^3/ul (0.3-0.9); MONOCYTES % 12.8 % (0.0-11.0); NEUTROPHIL # 3.4 10^3/ul (1.6-7.5); PLATELET COUNT 284 10^3/UL (140-415); RED BLOOD COUNT 5.71 10^6/ul (4.70-6.10); RED CELL DISTRIBUTION WIDTH 14.3 % (11.5-14.5)
[2016-06-13 17:31] LABS: POTASSIUM 4.2 mmol/L (3.5-5.1)
[2016-06-13 17:32] LABS: INR 3.5; PT RATIO 2.8
[2016-06-13 17:34] LABS: CALCIUM 8.7 mg/dl (8.4-10.2)
[2016-06-13 19:15] LABS: PROTIME 35.7 Sec (12.2-14.2)
[2016-06-13] MEDS: HYDROmorphONE 1 MG/ML SYG IV PRN (20:08)
[2016-06-13] MEDS: ATORVASTATIN 40 MG TAB PO SCH (20:08)
[2016-06-13] MEDS: DOCUSATE SODIUM 100 MG CAP PO PRN (20:12)
--- NOTE | 2016-06-13 21:14 | RADRPT ---
PROCEDURE: CT head, without contrast. CLINICAL INDICATION: Left cerebellar infarct. TECHNIQUE: Noncontrast CT examination of the head, with axial, sagittal and coronal reformatted im ages. Automated dose exposure control was employed. CTDI: 41.12 and DLP: 630.20. COMPARISON: CT head dated 06/11/2016. MRI head dated 06/11/2016. FINDINGS: Acute versus recent left cerebellar infarct again seen, without significant change. No acute hemorrhage. Subarachnoid spaces are substantially preserved and symmetric. Ventricles ar e unremarkable. No mass effect. [place]-white matter distinction is preserved without evident decreased attenuation t o suggest acute or recent infarct. Sinuses and osseous structures are unremarkable. IMPRESSION: Acute versus recent left cerebellar infarct again seen, without significant change. RPTAT: [facility] Physician Rick Date Time Electronically viewed and signed by Physician Rick on 06/13/2016 21:14 RS/
[2016-06-14] VITALS (12 sets, daily range): BP systolic 112–135; BP diastolic 64–78; PULSE 45–63; RESP 16–20
[2016-06-14 07:09] LABS: ADD SCAN DIFF NO
[2016-06-14 07:13] LABS: BASOPHIL # 0.1 10^3/ul (0.0-0.1); BASOPHILS % 0.8 % (0.0-2.0); EOSINOPHILS # 0.3 10^3/ul (0.0-0.5); EOSINOPHILS % 4.5 % (0.0-7.0); HEMATOCRIT 46.5 % (42.0-52.0); HEMOGLOBIN 15.8 g/dl (14.0-18.0); LYMPHOCYTES # 2.1 10^3/ul (0.8-2.9); LYMPHOCYTES % 33.1 % (15.0-51.0); MEAN CORPUSCULAR HEMOGLOBIN 27.6 pg (29.0-33.0); MEAN CORPUSCULAR VOLUME 81.2 fl (82.0-101.0); MEAN PLATELET VOLUME 11.2 fl (7.4-10.4); MONOCYTE # 0.8 10^3/ul (0.3-0.9); MONOCYTES % 12.5 % (0.0-11.0); NEUTROPHILS % 48.8 % (39.0-77.0); PLATELET COUNT 275 10^3/UL (140-415); RED BLOOD COUNT 5.73 10^6/ul (4.70-6.10); RED CELL DISTRIBUTION WIDTH 14.3 % (11.5-14.5); WHITE BLOOD COUNT 6.2 10^3/ul (4.8-10.8)
[2016-06-14 07:26] LABS: INR 3.45; PROTIME 35.3 Sec (12.2-14.2); PT RATIO 2.8
[2016-06-14 07:33] LABS: POTASSIUM 4.3 mmol/L (3.5-5.1)
[2016-06-14 07:36] LABS: CALCIUM 8.9 mg/dl (8.4-10.2); CREATININE 1.03 mg/dl (0.61-1.24)
--- NOTE | 2016-06-14 08:48 | CONS ---
DATE OF ADMISSION: 06/12/2016 DATE OF CONSULTATION: REFERRING PHYSICIAN: Dr. Abraham Thank you for asking me to see the patient. HISTORY OF PRESENT ILLNESS: The patient is a 61-year-old male with a past medical history of dyslip idemia. The patient with anticoagulation, underlying acute onset of stroke at the posterior i nferior cerebellar artery on the left side. CURRENT MEDICATIONS: Include: 1. Coumadin 10 mg once a day. 2. Lovenox 80 mg every 12 hours. 3. Zofran 4 mg every 4 hours as needed. 4. Atenolol 25 mg once a day. 5. Colace 100 mg twice a day as needed. 6. Milk of magnesia as needed. PHYSICAL EXAMINATION GENERAL: On exam today, the patient is alert, awake, oriented to time, place, and person. Normal sp eech and normal language. He looks anxious and nervous. CRANIAL NERVES: Cranial nerve II: Pupils equal on both sides, reactive to light. Cranial nerves I II, IV and : Extraocular muscles intact. Cranial nerve V: Decreased sensation in the left side of the face. Cranial nerve VII: Symmetrical face. Cranial nerve VIII: Decreased hearing bilatera lly. Cranial nerve X: Elevates palate. Cranial nerve XI: Elevates shoulder 5/5. Cranial nerve X II: With straight tongue. MOTOR: Equal on both sides. 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 Sensation decreased on the right rodrigo e for light touch and temperature. COORDINATION: [id number]-ie-[id number] test intact. HEART: Regular rate and rhythm. LUNGS: Equal breath sounds. ABDOMEN: Soft, relaxed, nondistended, nontender. ASSESSMENT AND PLAN 1. The patient is a 64-year-old with underlying of acute onset stroke. The patient already on Coum dee dee, will keep the INR between 2 and 3 to avoid an extension of stroke. 2. History of dysphagia which the patient will follow with speech therapy. 3. follow up the patient with acute rehabilitation in the form of physical therapy and occupa tional therapy. 4. We will keep the patient under fall precaution and aspiration precaution for now. Thank you for asking me to see the patient with you. Dictated By: PHILIP GARCÍA/NTS Conf#: [id number] DID#: [id number]
[2016-06-14] MEDS: FAMOTIDINE 20 MG TAB PO SCH ×2 (09:33→20:19)
[2016-06-14] MEDS: DOCUSATE SODIUM 100 MG CAP PO PRN (10:00)
[2016-06-14] MEDS: MAGNESIUM HYDROXIDE 30ML CUP PO PRN (10:01)
[2016-06-14] MEDS: HYDROCODONE/APAP (5/325) TAB PO PRN ×2 (11:34→20:19)
--- NOTE | 2016-06-14 15:56 | PN ---
Date/Time of Note Date/Time of Note DATE: 06/14/16 TIME: 15:31 Assessment/Plan VTE Prophylaxis VTE Prophylaxis Intervention: other (full anticoagulation with coumadin ) Lines/Catheters IV [facility] Saline Lock Urinary Cath still in place: No Assessment/Plan Assessment/Plan 61-year-old male with: 1. Acute or recent Left cerebellar infarct. Ataxia, dizzy CTA head and repeat CT head stable PT/OT at home Given Aortic mechanical valve, will target INR 2.5 to 3.5 especially given the fact that this CVA is suspected to be embolic Continue Coumadin, dosing per pharmacy 2. Status post Aortic mechanical valve. Goal INR should be 2.5 to 3.5. Continue Coumadin. 3. Hyperlipidemia. Continue atorvastatin for now. Prophylaxis. The patient is already on full anticoagulation and he is to receive Pepcid for GI prophylaxis. Disposition. D/c plan for home tomorrow if INR stable with HHPT, HHRn and Coumadin clinic Exam/Review of Systems Vital Signs Vitals Vital Signs Date Time Temp Pulse Resp B/P Pulse Ox O2 Delivery O2 Flow Rate FiO2 06/14/16 12:10 60 06/14/16 11:58 97.8 16 122/64 95 06/12/16 10:42 Room Air Intake and Output 06/13/16 06/13/16 06/14/16 15:00 23:00 07:00 Intake Total 500 ml Balance 500 ml Results Result Diagram: 06/14/16 0600 06/14/16 0600 Results 24 hrs Laboratory Tests Test 06/13/16 17:00 06/14/16 06:00 White Blood Count 7.0 # 6.2 Red Blood Count 5.71 5.73 Hemoglobin 15.6 15.8 Hematocrit 45.9 46.5 Mean Corpuscular Volume 80.4 L 81.2 L Mean Corpuscular Hemoglobin 27.3 L 27.6 L Mean Corpuscular Hemoglobin Concent 34.0 34.0 Red Cell Distribution Width 14.3 14.3 Platelet Count 284 275 Mean Platelet Volume 10.2 11.2 H Neutrophils % 48.0 48.8 Lymphocytes % 34.3 33.1 Monocytes % 12.8 H 12.5 H Eosinophils % 3.8 4.5 Basophils % 1.0 0.8 Nucleated Red Blood Cells % 0.0 0.0 Neutrophils # 3.4 3.0 Lymphocytes # 2.4 2.1 Monocytes # 0.9 0.8 Eosinophils # 0.3 0.3 Basophils # 0.1 0.1 Nucleated Red Blood Cells # 0.0 0.0 Prothrombin Time 35.7 #H 35.3 H Prothrombin Time Ratio 2.8 2.8 INR International Normalized Ratio 3.50 3.45 Sodium Level 137 137 Potassium Level 4.2 4.3 Chloride Level 102 103 Carbon Dioxide Level 25 25 Anion Gap 14 13 Blood Urea Nitrogen 19 19 Creatinine 1.00 1.03 Glucose Level 99 100 Calcium Level 8.7 8.9 Medications Medications Current Medications Ondansetron HCl (Zofran Inj) 4 mg Q6H PRN IV NAUSEA AND/OR VOMITING; Start at 18:00 Acetaminophen (Tylenol Tab) 650 mg Q6H PRN PO PAIN LEVEL 1-3 OR FEVER Last administered on 06/13/16 08:38; Admin Dose 650 MG; Start 06/11/16 at 18:00 Acetaminophen/ Hydrocodone Bitart ([place] (5/325)) 1 tab Q6H PRN PO PAIN LEVEL 4 -6 Last administered on 06/14/16 11:34; Admin Dose 1 TAB; Start 06/11/16 at 18: 00 Acetaminophen/ Hydrocodone Bitart ([place] (5/325)) 2 tab Q6H PRN PO PAIN LEVEL 7 -10 Last administered on 06/14/16 07:17; Admin Dose 2 TAB; Start 06/11/16 at 18 :00 Morphine Sulfate (morphine) 2 mg Q4H PRN IV PAIN LEVEL 7-10 Last administered on 06/13/16 16:43; Admin Dose 2 MG; Start 06/11/16 at 18:00 Docusate Sodium (Colace) 100 mg Q12H PRN PO CONSTIPATION Last administered on 10:00; Admin Dose 100 MG; Start 06/11/16 at 18:00 Magnesium Hydroxide (Milk Of Mag) 30 ml DAILY PRN PO CONSTIPATION Last administered on 06/14/16 10:01; Admin Dose 30 ML; Start 06/11/16 at 18:00 Bisacodyl (Dulcolax Supp) 10 mg DAILY PRN [place] CONSTIPATION; Start 06/11/16 at 18 :00 Famotidine (Pepcid) 20 mg Q12 PO Last administered on 06/14/16 09:33; Admin Dose 20 MG; Start 06/11/16 at 21:00 Atorvastatin Calcium (Lipitor) 40 mg QHS PO Last administered on 06/13/16 20: 08; Admin Dose 40 MG; Start 06/11/16 at 21:00 Diazepam (Valium) 5 mg Q8H PRN PO MUSCLE SPASMS; Start 06/11/16 at 18:30 Hydromorphone HCl (Dilaudid) 1 mg Q3H PRN IV PAIN LEVEL 7-10 Last administered on 06/13/16 20:08; Admin Dose 1 MG; Start 06/12/16 at 04:30 Warfarin Sodium (Coumadin) 5 mg DAILY@17 PO Last administered on 06/13/16 16: 42; Admin Dose 5 MG; Start 06/13/16 at 17:00; Status Future hold Procedures Procedures Echocardiogram Report ADDENDUM Patient Name: JOSE LEY Gender: Male Date: 1955 Study Date: 12-Jun-2016 Manager Of Transportation: [facility] Location: [facility] Ref. Physician: MORA MCGRATH Quality: Adequate Procedures: Transthoracic echocardiogram with complete 2D, M-Mode, and doppler examination. Indications: Chest Pain. 2D/M Mode Doppler Measurement Value Normal Ranges Measurement Value Normal Ranges LVIDd 2D 3.8 3.5 - 5.6 cm LETY Vmax 2.0 cm2 LVIDs 2D 2.6 2.1 - 4.1 cm LETY VTI 2.0 cm2 LVPWd 2D 1.3 0.6 - 1.1 cm AV Mean Sandeep 1.5 m/sec IVSd 2D 1.5 0.6 - 1.1 cm AV Mean PG 10.0 mmHg AoR Diam 2D 2.0 2.0 - 3.7 cm AV Peak Sandeep 2.1 m/sec EDV 2D 62.1 cm3 AV Peak PG 17.5 mmHg ESV 2D 17.1 cm3 AV VTI 45.4 cm LVOT Diam 1.9 cm LVOT Mean Sandeep 0.9 m/sec LVOT Mean PG 3.7 mmHg LVOT Peak Sandeep 1.5 m/sec LVOT Peak PG 8.9 mmHg LVOT VTI 31.5 cm MV E Peak Sandeep 0.7 m/sec MV A Peak Sandeep 1.0 m/sec MV E/A 0.8 MV Decel Time 343 msec MV Decel [place] 2 MV E/A 0.8 TR Peak Sandeep 2.2 m/sec TR Peak PG 20.0 mmHg Findings Left Ventricle: Normal left ventricular systolic function. Normal left ventricular cavity size. Mild hypertrophy of the basal septum. Ejection fraction is visually estimated at 65 %. Tissue Doppler/Mitral Doppler indices are consistent with impaired relaxation (Stage I diastolic dysfunction). Resting left ventricular outflow tract velocity 1.49 m/sec. Resting left ventricular outflow tract gradient 8.9 mmHg. Right Ventricle: Normal right ventricular size. Normal right ventricular systolic function. Left Atrium: The left atrium is normal in size. Right Atrium: The right atrium is normal in size. Mitral Valve: Mild mitral leaflet calcification. Mild mitral annular calcification. Trace mitral regurgitation. Mild mitral stenosis. Mitral valve Max Velocity 1.19 m/sec. MaxPG 5.60 mmHg. MeanPG 1.70 mmHg. Mitral Valve Area by PHT2.50 cm2. Mitral Valve Area by Continuity2.50 cm2. Aortic Valve: Aortic Valve Mechanical Prosthesis. Aortic valve Max velocity 2.09 m/sec. Max PG 17.50 mmHg. Mean PG 10.00 mmHg. Aortic valve area 2.00 cm2. Tricuspid Valve: Estimated peak PA systolic pressure 23 mmHg. There is mild tricuspid regurgitation. Pulmonic Valve: There is trace pulmonic regurgitation. Pericardium: Normal pericardium with no significant pericardial effusion. Aorta: Normal aortic root. IVC: Normal size and normal respiratory collapse consistent with normal right atrial pressure. Conclusions 1. Normal left ventricular systolic function. Normal left ventricular cavity size. Mild hypertrophy of the basal septum. Ejection fraction is visually estimated at 65 %. Tissue Doppler/Mitral Doppler indices are consistent with impaired relaxation (Stage I diastolic dysfunction). Resting left ventricular outflow tract velocity 1.49 m/sec. Resting left ventricular outflow tract gradient 8.9 mmHg. 2. Mild mitral leaflet calcification. Mild mitral annular calcification. Trace mitral regurgitation. Mild mitral stenosis. Mitral valve Max Velocity 1.19 m/sec. MaxPG 5.60 mmHg. MeanPG 1.70 mmHg. Mitral Valve Area by PHT2.50 cm2. Mitral Valve Area by Continuity2.50 cm2. 3. Aortic Valve Mechanical Prosthesis. Aortic valve Max velocity 2.09 m/sec. Max PG 17.50 mmHg. Mean PG 10.00 mmHg. Aortic valve area 2.00 cm2. 4. Estimated peak PA systolic pressure 23 mmHg. There is mild tricuspid regurgitation. Electronically Signed By: ELI Hill Jun 14, 2016 15:43
[2016-06-14] MEDS ORDERED: WARFARIN 5 MG TAB PO ONE (17:00)
--- NOTE | 2016-06-14 17:38 | SP ---
DATE OF PROCEDURE: 06/14/2016 REFERRING PHYSICIAN: ELI ABRAHAM MD. Dr. Abraham: Thank you for asking me to see the patient with you. HISTORY OF PRESENT ILLNESS: The patient is a 61-year-old male with a past medical history of dyslip idemia, mechanical valve in which the patient had anticoagulation in the form of Coumadin. The kenny ent admitted to the hospital with new onset of stroke in the left PICA area for which the patient wa s admitted to telemetry for more evaluation and treatment. CURRENT MEDICATIONS: Includes: 1. Coumadin according to the INR between 2 to 3. 2. Lovenox 80 mg every 12 hours, gets the Coumadin distributed. 3. Zofran 4 mg every 4 hours. 4. Atenolol 25 mg once a day. 5. Colace 100 mg twice a day. 6. Milk of magnesia as needed. PHYSICAL EXAMINATION: GENERAL: On exam today, the patient is alert, awake, oriented for time, place and person. Normal s peech and normal language. CRANIAL NERVES: Cranial nerve II: Pupils equal on both sides, reactive. Cranial nerves III, IV an d : Extraocular muscles intact segments. Cranial nerve V: Decreased sensation in the left side o f the face. Cranial nerve VII: Symmetrical face. Cranial nerve VIII: Decreased hearing bilaterall y. Cranial nerve X: Elevates palate. Cranial nerve XI: Elevates shoulder 5/5. Cranial nerve XII : With straight tongue. 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 Sensation decreased on the right side for light touch and t emperature. COORDINATION: Lrtlir-vs-[id number] test intact. HEART: Regular rate and rhythm. LUNGS: Equal breath sounds. ABDOMEN: Soft, relaxed, nondistended. No tenderness. ASSESSMENT AND PLAN 1. The patient is a 61-year-old patient with underlying acute stroke in the left posterior inferior cerebellar artery. Continue the patient on Coumadin and keep INR between 2.3 and 3.3 in which the patient has a mechanical valve. 2. History of dysphagia. We will follow up the patient with speech therapist secondary to posteri or inferior cerebellar artery infarction. 3. Ataxia and dizzy spells, probably secondary to cerebellar infarction in which the patient needs physical therapy and occupational therapy for more help and evaluation and treatment. 4. We will keep the patient under fall precaution and aspiration precaution. Again, thank you for asking me to see the patient with you. Dictated By: PHILIP GARCÍA/DONALDO Conf#: [id number] DID#: [id number]
[2016-06-14] MEDS: ATORVASTATIN 40 MG TAB PO SCH (20:19)
[2016-06-15] VITALS (9 sets, daily range): BP systolic 117–130; BP diastolic 68–84; PULSE 50–76; RESP 18–20
[2016-06-15 08:41] LABS: INR 2.78; PROTIME 29.7 Sec (12.2-14.2); PT RATIO 2.3
[2016-06-15] MEDS: FAMOTIDINE 20 MG TAB PO SCH (09:58)
--- NOTE | 2016-06-15 16:20 | PN ---
Date/Time of Note Date/Time of Note DATE: 06/15/16 TIME: 16:14 Assessment/Plan VTE Prophylaxis VTE Prophylaxis Intervention: other (on coumadin ) Lines/Catheters IV Catheter Type (from Nrs): Saline Lock Urinary Cath still in place: No Assessment/Plan Assessment/Plan 61-year-old male with: 1. Acute or recent Left cerebellar infarct. Ataxia, dizzy CTA head and repeat CT head stable Home Heal PT and FWW for home Given Aortic mechanical valve, Target INR 2.5 to 3.5 especially given the fact that this CVA is suspected to be embolic Continue Coumadin, dosing per Coumadin clinic D/c home and follow up with PCP and Neurology as outpatient 2. Status post Aortic mechanical valve. Goal INR should be 2.5 to 3.5. Continue Coumadin. 3. Hyperlipidemia. Continue atorvastatin for now. Prophylaxis. The patient is already on full anticoagulation and he is to receive Pepcid for GI prophylaxis. Disposition. D/c plan for home with home health today, for PT and follow up with PCP, Neurology and Coumadin clinic Subjective 24 Hr Interval Summary Free Text/Dictation Patient doing well He has some residual posterior DURAND but improving No further complaints D/c home today on Coumadin Exam/Review of Systems Vital Signs Vitals Vital Signs Date Time Temp Pulse Resp B/P Pulse Ox O2 Delivery O2 Flow Rate FiO2 06/15/16 13:54 98.7 18 117/84 95 Room Air 06/15/16 12:29 74 Intake and Output 06/14/16 06/14/16 06/15/16 15:00 23:00 07:00 Intake Total 780 ml Balance 780 ml Exam Constitutional: alert, oriented, well developed Respiratory: clear to auscultation, normal air movement Cardiovascular: nl pulses, regular rate and rhythm Gastrointestinal: non-tender, soft Musculoskeletal: nl extremities to inspection, nl gait and stance (but feels s little imbalance ) Extremities: normal pulses Neurological: MOBILE NURSE II-XII intact, nl mental status, nl speech, nl strength Results Result Diagram: 06/14/16 0600 06/14/16 0600 Results 24 hrs Laboratory Tests Test 06/15/16 07:18 Prothrombin Time 29.7 H Prothrombin Time Ratio 2.3 INR International Normalized Ratio 2.78 Medications Medications Current Medications Ondansetron HCl (Zofran Inj) 4 mg Q6H PRN IV NAUSEA AND/OR VOMITING; Start at 18:00 Acetaminophen (Tylenol Tab) 650 mg Q6H PRN PO PAIN LEVEL 1-3 OR FEVER Last administered on 06/13/16 08:38; Admin Dose 650 MG; Start 06/11/16 at 18:00 Acetaminophen/ Hydrocodone Bitart ([place] (5/325)) 1 tab Q6H PRN PO PAIN LEVEL 4 -6 Last administered on 06/14/16 20:19; Admin Dose 1 TAB; Start 06/11/16 at 18: 00 Acetaminophen/ Hydrocodone Bitart ([place] (5/325)) 2 tab Q6H PRN PO PAIN LEVEL 7 -10 Last administered on 06/14/16 07:17; Admin Dose 2 TAB; Start 06/11/16 at 18 :00 Morphine Sulfate (morphine) 2 mg Q4H PRN IV PAIN LEVEL 7-10 Last administered on 06/13/16 16:43; Admin Dose 2 MG; Start 06/11/16 at 18:00 Docusate Sodium (Colace) 100 mg Q12H PRN PO CONSTIPATION Last administered on 10:00; Admin Dose 100 MG; Start 06/11/16 at 18:00 Magnesium Hydroxide (Milk Of Mag) 30 ml DAILY PRN PO CONSTIPATION Last administered on 06/14/16 10:01; Admin Dose 30 ML; Start 06/11/16 at 18:00 Bisacodyl (Dulcolax Supp) 10 mg DAILY PRN [place] CONSTIPATION; Start 06/11/16 at 18 :00 Famotidine (Pepcid) 20 mg Q12 PO Last administered on 06/15/16 09:58; Admin Dose 20 MG; Start 06/11/16 at 21:00 Atorvastatin Calcium (Lipitor) 40 mg QHS PO Last administered on 06/14/16 20: 19; Admin Dose 40 MG; Start 06/11/16 at 21:00 Diazepam (Valium) 5 mg Q8H PRN PO MUSCLE SPASMS; Start 06/11/16 at 18:30 Hydromorphone HCl (Dilaudid) 1 mg Q3H PRN IV PAIN LEVEL 7-10 Last administered on 06/13/16 20:08; Admin Dose 1 MG; Start 06/12/16 at 04:30 Warfarin Sodium (Coumadin) 5 mg MONWEDFRI PO ; Start 06/16/16 at 17:00 Warfarin Sodium (Coumadin) 10 mg SuTuThSa@17 PO ; Start 06/15/16 at 17:00 ELI MCGRATH Jun 15, 2016 16:19
--- NOTE | 2016-06-15 16:32 | PDOCDIS ---
Discharge Instructions CONDITION Patient Condition: Stable HOME CARE INSTRUCTIONS: Special Diet: Low fat/low cholesterolYour diet recommendation is: Coumadin adjusted diet ACTIVITY: Activity Restrictions: Slowly Increase Activity FOLLOW UP/APPOINTMENTS Appointments Follow up with PCP within 1 week Follow up with Neurology as outpatient within 1 to 2 weeks Follow up with Home health PT Follow up with Coumadin clinic for Coumadin, goal INR is 2.5 to 3.5 for this patient ELI MCGRATH Jun 15, 2016 16:32
[2016-06-15] MEDS ORDERED: WARF10TA PO ×2 (16:35)
[2016-06-15] MEDS ORDERED: HYDR-3498 PO (16:36)
[2016-06-15] MEDS ORDERED: WARFARIN 10 MG TAB PO SCH (17:00)
--- NOTE | 2016-06-15 19:59 | PN ---
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 The patient on anticoagulation. The patient admitted to the hospital with stroke with le ft PICA infarction. CURRENT MEDICATIONS: Include: 1. Coumadin. 2. Lovenox 80 mg twice a day. 3. Zofran 4 mg every 4 hours. 4. Atenolol 25 mg. 5. Colace 100 mg once a day. 6. Milk of magnesia. OBJECTIVE: GENERAL: Today, the patient is alert, awake, oriented for time, place, and person. Normal speech a nd normal language. CRANIAL NERVES: Cranial nerve II: Pupils equal on both sides, reactive to light. Cranial nerves I II, IV, and : Extraocular muscles intact. Cranial nerve V: Equal sensation to face. Cranial ne rve VII: Symmetrical face. Cranial nerve VIII: Decreased hearing bilaterally. Cranial nerves IX and X: Elevates palate. Cranial nerve XI: Elevates shoulder 5/5. Cranial nerve XII: With straig ht tongue. 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 SENSATION: Decreased for glove and sock area for light touch and temperature. COORDINATION: Cjgnmf-su-sxrd test intact. HEART: Regular rate and rhythm. LUNGS: Equal breath sounds. ABDOMEN: Soft, relaxed, nondistended. No tenderness. ASSESSMENT AND PLAN 1. The patient is a 61-year-old with underlying stroke with posterior inferior cerebellar artery in farction. Continue the patient on Coumadin. Keep the INR between 2.5 to 3.5. The patient had a me chanical valve. 2. Dysphagia. Follow up the patient with speech therapist for more evaluation and treatment in [facility] the patient cleared his throat. 3. Ataxia and dizziness secondary the posterior inferior cerebellar artery infarction. Follow up t he patient as an outpatient and acute rehabilitation. 4. Keep the patient under fall precaution and aspiration precaution. Again, thank you for asking me to see the patient with you. Dictated By: PHILIP GARCÍA/NTS Conf#: [id number] DID#: [id number] CC: ELI MCGRATH MD;*EndCC*
[2016-06-16] MEDS ORDERED: WARFARIN 5 MG TAB PO SCH (17:00)
--- NOTE | 2016-06-16 21:23 | PN ---
DATE: REFERRING PHYSICIAN: Dr. Mcgrath Thank you for asking me to see the patient with you. SUBJECTIVE: The patient has a history of hypertension, acute left posterior inferior cerebellar acu te infarction in which the patient admitted to [facility] for more evaluation and treatment. CURRENT MEDICATIONS: Which include: 1. Coumadin to keep INR between 2.5 to 8.5. 2. as well as Lovenox until Coumadin ____, discontinue. 3. Zofran 4 mg every 4 hours as needed. 4. Colace 100 mg twice a day. 5. Atenolol 25 mg once a day. 6. Milk of magnesium as needed. PHYSICAL EXAMINATION: GENERAL: Today, the patient is alert, awake, oriented to time, place, and person. Normal speech an d normal language. CRANIAL NERVES: Cranial nerve II: Pupils equal on both sides, reactive to light. Cranial nerves I II, IV, and : Extraocular muscles intact. Cranial nerve V: Decreased sensation on the left side of the head. Cranial nerve VII: Symmetrical face. Cranial nerve VIII: Decreased hearing bilater ally. Cranial nerve IX, X: Elevates palate. Cranial nerve XI: Elevates shoulder 5/5. Cranial ne rve XII: With straight tongue. 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 SENSATION: Decreased on the right side for light touch and temperature. COORDINATION: Zoeraf-jz-dyyz test intact. HEART: Regular rate and rhythm. LUNGS: Equal breath sounds. ABDOMEN: Soft, relaxed, nondistended. No tenderness. ASSESSMENT AND PLAN: 1. The patient is a 61-year-old with underlying posterior inferior cerebellar infarction. Continue the patient on Coumadin. Keep INR between 2.5 to 3.5. 2. Dysphagia, probably secondary to posterior inferior cerebellar infarction. Follow up the patien t with speech therapist. 3. Ataxia and gait difficulty. Follow up the patient with physical therapy and rehabilitation. 4. Keep the patient under fall precautions as well as deep venous thrombosis prophylaxis. Again, thank you for asking me to see the patient with you. Dictated By: PHILIP TOLENTINO MD NA/NTS Conf#: [id number] DID#: [id number] CC: ELI MCGRATH MD;*End*
== END 2016-06-15 19:15 | disposition home or self-care (01) | DRG 66 ==
LOC: FTE 07:09 → MS4 06-12 11:47
PROVIDERS: ADMIT Internal Medicine; ATTEND Internal Medicine
DX: I63.132 Cerebral infarction due to embolism of left carotid artery (principal); R13.10 Dysphagia, unspecified; N18.3 Chronic kidney disease, stage 3 (moderate); R26.0 Ataxic gait; E78.5 Hyperlipidemia, unspecified; R42 Dizziness and giddiness; Z95.2 Presence of prosthetic heart valve; Z79.01 Long term (current) use of anticoagulants; Z79.82 Long term (current) use of aspirin
CPT/HCPCS: 70450; 70496; 70498; 70553; 80048; 80053; 80061; 83036; 83735; 85025; 85610; 85730; 92610; 93306; 96372; 96374; 96375; 96376; J1170; J1650; J2060; J2270; J7040; Q9967